=== PATIENT | female | born 1965 | race Caucasian/White ===

== ENCOUNTER 2022-08-26 19:25 | Inpatient (IN) | payer MEDICAID ==
[~2022-08-26] VITALS: Ht 154.9 cm; Wt 82.6 kg
[2022-08-26] MEDS ORDERED: IPRATROPIUM BROMIDE (0.02%) 0.5MG/2.5ML NEB HHN STA (20:42)
[2022-08-26] MEDS ORDERED: METHYLPREDNISOLONE SOD SUCC 125 MG/2 ML VIAL IV STA (20:42)
[2022-08-26] MEDS ORDERED: FUROSEMIDE 40MG/4ML VIAL IV ONE (20:45)
[2022-08-26 21:13] LABS: BASOPHILS % 0.5 % (0.0-2.0); EOSINOPHILS % 0.3 % (0.0-5.0); HEMATOCRIT. 46.6 % (36.0-48.0); HEMOGLOBIN. 15.1 g/dL (12.0-16.0); LYMPHOCYTES % 17.9 % (20.0-50.0); MEAN CORPUSCULAR HEMOGLOBIN 29.2 pg (28.0-32.0); MEAN CORPUSCULAR VOLUME 90.4 fL (81.0-99.0); MEAN PLATELET VOLUME 8.7 fl (7.4-10.4); NEUTROPHILS % 74.3 % (40.0-76.0); PLATELET 254 x1000/uL (130-400); RED BLOOD CELL COUNT 5.15 mill/uL (4.2-5.4); RED CELL DISTRIBUTION WIDTH 18.3 % (11.6-14.6)
[2022-08-26] MEDS ORDERED: SODIUM CHLORIDE 0.9% 1,000 ML IV ONE (21:45)
[2022-08-26] MEDS: ALBUTEROL (0.083%) 2.5MG/3ML NEB HHN SCH ×2 (21:47→23:48)
[2022-08-26 22:14] LABS: CHLORIDE 100 mEq/L (98-107)
[2022-08-26 22:15] LABS: CLARITY URINE CLEAR (CLEAR); COLOR URINE YELLOW (YELLOW); KETONES URINE NEGATIVE (NEGATIVE); LEUKOCYTE ESTERASE URINE NEGATIVE (NEGATIVE); NITRITE URINE NEGATIVE (NEGATIVE); OCCULT BLOOD URINE NEGATIVE (NEGATIVE); PROTEIN URINE NEGATIVE (NEGATIVE); SPECIFIC GRAVITY URINE 1.007 (1.005-1.030); UROBILINOGEN URINE 0.2 E.U./dL (0.2-1.0)
[2022-08-26] MEDS ORDERED: DIPHENHYDRAMINE 50MG/ML VIAL IV PRN (22:30)
[2022-08-26] MEDS ORDERED: MAGNESIUM HYDROXIDE 400MG/5ML 30ML UDC PO PRN (22:30)
[2022-08-26] MEDS ORDERED: BENZONATATE 100MG CAPSULE PO PRN (22:30)
[2022-08-26] MEDS ORDERED: KETOROLAC 30MG/ML VIAL IV PRN (22:30)
[2022-08-26] MEDS ORDERED: ACETAMINOPHEN 325MG TABLET PO PRN ×2 (22:30)
[2022-08-26] MEDS ORDERED: MAGNESIUM/ALUMINUM HYDROXIDE/SIMETHICONE 30ML UDC PO PRN (22:30)
[2022-08-26] MEDS ORDERED: IPRATROPIUM/ALBUTEROL 0.5-3(2.5)MG/3ML NEB HHN PRN (22:30)
[2022-08-26] MEDS ORDERED: HYDRALAZINE 20MG/ML VIAL IV PRN (22:30)
[2022-08-26] MEDS ORDERED: IPRATROPIUM/ALBUTEROL 0.5-3(2.5)MG/3ML NEB HHN SCH (22:30)
[2022-08-26] MEDS ORDERED: ONDANSETRON HCL 4MG/2ML INJ IV PRN (22:30)
[2022-08-26] MEDS ORDERED: HYDROCODONE/ACETAMINOPHEN 5/325MG TABLET PO ONE (22:45)
[2022-08-26] MEDS ORDERED: NICOTINE 21MG PATCH TD ONE (22:45)
[2022-08-26] MEDS ORDERED: ALBUTEROL (0.083%) 2.5MG/3ML NEB HHN PRN (23:00)
[2022-08-26] MEDS ORDERED: IPRATROPIUM BROMIDE (0.02%) 0.5MG/2.5ML NEB HHN PRN (23:00)
[2022-08-26] MEDS: METHYLPREDNISOLONE SOD SUCC 40 MG/ML VIAL IV SCH (23:05)
[2022-08-26] MEDS: IPRATROPIUM BROMIDE (0.02%) 0.5MG/2.5ML NEB HHN SCH (23:47)
[2022-08-27 01:16] VITALS: BP 107/34
[2022-08-27] MEDS ORDERED: FURO-152 PO (03:27)
[2022-08-27] MEDS ORDERED: GABA600T PO (03:29)
[2022-08-27] MEDS ORDERED: TRAZ-252 PO (03:30)
[2022-08-27] MEDS ORDERED: HYDR-4009 PO (03:30)
[2022-08-27] MEDS: SODIUM CHLORIDE 0.9% INJ 3ML FLUSH IVF SCH ×3 (05:45→21:21)
[2022-08-27] MEDS: METHYLPREDNISOLONE SOD SUCC 40 MG/ML VIAL IV SCH ×3 (05:45→21:19)
[2022-08-27] MEDS: ALBUTEROL (0.083%) 2.5MG/3ML NEB HHN SCH ×4 (05:52→20:43)
[2022-08-27] MEDS: IPRATROPIUM BROMIDE (0.02%) 0.5MG/2.5ML NEB HHN SCH ×4 (05:52→20:43)
[2022-08-27] MEDS: HYDROCODONE/ACETAMINOPHEN 10/325MG TABLET PO PRN ×2 (06:31→20:12)
[2022-08-27 08:00] VITALS: BP 133/53
[2022-08-27] MEDS: GUAIFENESIN 600MG ER TABLET PO SCH ×2 (09:13→20:11)
[2022-08-27] MEDS: ASPIRIN 81MG EC TABLET PO SCH (09:13)
[2022-08-27] MEDS: LOSARTAN POTASSIUM 50 MG TABLET PO SCH (09:13)
[2022-08-27] MEDS: OMEPRAZOLE 20MG CAPSULE EXTENDED RELEASE PO SCH ×2 (09:13→20:11)
[2022-08-27] MEDS: AMLODIPINE 5MG TABLET PO SCH ×2 (09:17→20:11)
[2022-08-27] MEDS: ENOXAPARIN 40MG/0.4ML SYR SUBCUT SCH (09:21)
[2022-08-27] MEDS ORDERED: KETOROLAC 15MG/ML VIAL IV PRN (11:00)
[2022-08-27 11:55] VITALS: BP 132/56
[2022-08-27] MEDS ORDERED: BACL-141 PO (12:20)
[2022-08-27] MEDS ORDERED: LOSA50TA41 PO (12:21)
[2022-08-27] MEDS ORDERED: LORA-985 PO (12:21)
[2022-08-27] MEDS ORDERED: PANT40SU PO (12:22)
[2022-08-27] MEDS ORDERED: OLAN5TAB74 PO (12:22)
[2022-08-27] MEDS ORDERED: DULO30CA52 PO (12:23)
[2022-08-27] MEDS: GABAPENTIN 300MG CAPSULE PO SCH ×2 (13:16→21:19)
[2022-08-27] MEDS: LIDOCAINE 5% PATCH TOP SCH (13:17)
[2022-08-27 16:00] VITALS: BP 117/57
[2022-08-27] MEDS ORDERED: NALOXONE HCL 0.4MG/ML VIAL IV PRN (18:00)
[2022-08-27 20:00] VITALS: BP 123/63
[2022-08-27] MEDS: ZOLPIDEM TARTRATE 5MG TABLET PO PRN (21:19)
[2022-08-27] MEDS: BACLOFEN 10MG TABLET PO SCH (21:20)
[2022-08-27] MEDS ORDERED: LORA-250 PO (21:56)
[2022-08-28] VITALS: BP 106/65
[2022-08-28] MEDS: IPRATROPIUM BROMIDE (0.02%) 0.5MG/2.5ML NEB HHN SCH ×4 (01:02→17:55)
[2022-08-28] MEDS: ALBUTEROL (0.083%) 2.5MG/3ML NEB HHN SCH ×4 (01:02→20:40)
[2022-08-28 04:00] VITALS: BP 122/58
[2022-08-28] MEDS: GABAPENTIN 300MG CAPSULE PO SCH ×3 (05:32→21:15)
[2022-08-28] MEDS: METHYLPREDNISOLONE SOD SUCC 40 MG/ML VIAL IV SCH ×3 (05:32→21:14)
[2022-08-28] MEDS: SODIUM CHLORIDE 0.9% INJ 3ML FLUSH IVF SCH ×3 (05:32→21:16)
[2022-08-28] MEDS: KETOROLAC 15MG/ML VIAL IV PRN ×3 (06:38→18:08)
[2022-08-28] MEDS: OMEPRAZOLE 20MG CAPSULE EXTENDED RELEASE PO SCH (06:38)
[2022-08-28 08:07] VITALS: BP 122/72
[2022-08-28] MEDS: ENOXAPARIN 40MG/0.4ML SYR SUBCUT SCH (09:26)
[2022-08-28] MEDS: LOSARTAN POTASSIUM 50 MG TABLET PO SCH (09:27)
[2022-08-28] MEDS: LIDOCAINE 5% PATCH TOP SCH (09:27)
[2022-08-28] MEDS: ASPIRIN 81MG EC TABLET PO SCH (09:27)
[2022-08-28] MEDS: AMLODIPINE 5MG TABLET PO SCH ×2 (09:27→21:15)
[2022-08-28] MEDS: BACLOFEN 10MG TABLET PO SCH ×3 (09:27→18:08)
[2022-08-28] MEDS: HYDROCODONE/ACETAMINOPHEN 10/325MG TABLET PO PRN ×2 (09:27→21:15)
[2022-08-28] MEDS: GUAIFENESIN 600MG ER TABLET PO SCH ×2 (09:43→21:15)
[2022-08-28] MEDS: NICOTINE 21MG PATCH TD SCH (11:44)
[2022-08-28 12:00] VITALS: BP 120/64
[2022-08-28 15:35] VITALS: BP 128/54
[2022-08-28 20:00] VITALS: BP 129/58
[2022-08-28] MEDS: FAMOTIDINE 20MG TABLET PO SCH (21:15)
[2022-08-28] MEDS: ZOLPIDEM TARTRATE 5MG TABLET PO PRN (23:07)
[2022-08-29] VITALS: BP 116/48
[2022-08-29] MEDS: ALBUTEROL (0.083%) 2.5MG/3ML NEB HHN SCH ×4 (02:08→20:30)
[2022-08-29] MEDS: IPRATROPIUM BROMIDE (0.02%) 0.5MG/2.5ML NEB HHN SCH ×4 (02:08→20:31)
[2022-08-29 04:00] VITALS: BP 124/53
[2022-08-29] MEDS: KETOROLAC 15MG/ML VIAL IV PRN (04:25)
[2022-08-29] MEDS: GABAPENTIN 300MG CAPSULE PO SCH ×3 (05:46→21:01)
[2022-08-29] MEDS: FAMOTIDINE 20MG TABLET PO SCH ×2 (05:46→21:01)
[2022-08-29] MEDS: SODIUM CHLORIDE 0.9% INJ 3ML FLUSH IVF SCH ×3 (05:46→21:01)
[2022-08-29 07:57] VITALS: BP 139/55
[2022-08-29] MEDS: METHYLPREDNISOLONE SOD SUCC 40 MG/ML VIAL IV SCH ×2 (09:04→21:14)
[2022-08-29] MEDS: ASPIRIN 81MG EC TABLET PO SCH (09:05)
[2022-08-29] MEDS: GUAIFENESIN 600MG ER TABLET PO SCH ×2 (09:05→21:01)
[2022-08-29] MEDS: LOSARTAN POTASSIUM 50 MG TABLET PO SCH (09:05)
[2022-08-29] MEDS: BACLOFEN 10MG TABLET PO SCH ×3 (09:05→17:00)
[2022-08-29] MEDS: AMLODIPINE 5MG TABLET PO SCH ×2 (09:05→21:01)
[2022-08-29] MEDS: LIDOCAINE 5% PATCH TOP SCH (09:08)
[2022-08-29] MEDS: NICOTINE 21MG PATCH TD SCH (09:08)
[2022-08-29] MEDS: ENOXAPARIN 40MG/0.4ML SYR SUBCUT SCH (09:08)
[2022-08-29 12:41] VITALS: BP 136/49
[2022-08-29] MEDS: HYDROCODONE/ACETAMINOPHEN 10/325MG TABLET PO PRN (14:32)
[2022-08-29 16:00] VITALS: BP 123/48
[2022-08-29 20:00] VITALS: BP 120/53
[2022-08-30] VITALS: BP 141/80
[2022-08-30] MEDS: ZOLPIDEM TARTRATE 5MG TABLET PO PRN (00:38)
[2022-08-30] MEDS: KETOROLAC 15MG/ML VIAL IV PRN ×2 (01:01→10:03)
[2022-08-30] MEDS: ALBUTEROL (0.083%) 2.5MG/3ML NEB HHN SCH ×3 (01:27→14:50)
[2022-08-30] MEDS: IPRATROPIUM BROMIDE (0.02%) 0.5MG/2.5ML NEB HHN SCH ×3 (01:28→14:50)
[2022-08-30 04:00] VITALS: BP 130/58
[2022-08-30] MEDS: GABAPENTIN 300MG CAPSULE PO SCH (06:25)
[2022-08-30] MEDS: FAMOTIDINE 20MG TABLET PO SCH (06:25)
[2022-08-30] MEDS: HYDROCODONE/ACETAMINOPHEN 10/325MG TABLET PO PRN (06:26)
[2022-08-30] MEDS: SODIUM CHLORIDE 0.9% INJ 3ML FLUSH IVF SCH (06:27)
[2022-08-30 08:00] VITALS: BP 140/77
[2022-08-30] MEDS: GUAIFENESIN 600MG ER TABLET PO SCH (09:30)
[2022-08-30] MEDS: LOSARTAN POTASSIUM 50 MG TABLET PO SCH (09:30)
[2022-08-30] MEDS: ASPIRIN 81MG EC TABLET PO SCH (09:30)
[2022-08-30] MEDS: AMLODIPINE 5MG TABLET PO SCH (09:30)
[2022-08-30] MEDS: BACLOFEN 10MG TABLET PO SCH (09:30)
[2022-08-30] MEDS: ENOXAPARIN 40MG/0.4ML SYR SUBCUT SCH (09:31)
[2022-08-30] MEDS: NICOTINE 21MG PATCH TD SCH (09:31)
[2022-08-30] MEDS: METHYLPREDNISOLONE SOD SUCC 40 MG/ML VIAL IV SCH (09:31)
[2022-08-30] MEDS: LIDOCAINE 5% PATCH TOP SCH (09:34)
[2022-08-30 12:00] VITALS: BP 107/68
[2022-08-30 12:23] LABS: BG CARBOXYHEMOGLOBIN 1.4 % (0.5-1.5); BG DEOXYHEMOGLOBIN 9.9 % (0.0-5.0); BG FRACTION INSPIRED OXYGEN 21; BG HCO3 ACT 29.4 mmol/L (22.0-26.0); BG METHEMOGLOBIN 0.2 % (0.0-1.5); BG OXYGEN SATURATION 89.9 % (92.0-98.5); BG OXYHEMOGLOBIN 88.5 % (94.0-97.0); BG PCO2 46.6 mmHg (35.0-45.0); BG PH 7.418 (7.350-7.450); BG PO2 56.4 mmHg (75.0-100.0); BG SAMPLE SITE RIGHT RADIAL; BG TOTAL HEMOGLOBIN 15.5 g/dL (12.0-18.0); BG VENT MODE ROOM AIR
[2022-08-30 13:47] VITALS: BP 101/78
== END 2022-08-30 15:04 | disposition home or self-care (01) | DRG 140 ==
LOC: ER 19:25 → EDBEDREQ 21:44 → EDBEDREQSVC 21:44 → 7WST 08-27 02:09 → 6EST 08-29 11:59
PROVIDERS: ADMIT Internal Medicine; ATTEND Internal Medicine
DX: J44.1 Chronic obstructive pulmonary disease with (acute) exacerbation (principal); J96.21 Acute and chronic respiratory failure with hypoxia; I50.33 Acute on chronic diastolic (congestive) heart failure; I11.0 Hypertensive heart disease with heart failure; E78.00 Pure hypercholesterolemia, unspecified; D72.829 Elevated white blood cell count, unspecified; Z20.822 Contact with and (suspected) exposure to COVID-19; E66.9 Obesity, unspecified; F32.A Depression, unspecified; F17.210 Nicotine dependence, cigarettes, uncomplicated; M54.30 Sciatica, unspecified side; Z87.01 Personal history of pneumonia (recurrent); Z59.00 Homelessness unspecified; Z99.81 Dependence on supplemental oxygen; Z68.34 Body mass index [BMI] 34.0-34.9, adult; Z95.5 Presence of coronary angioplasty implant and graft
CPT/HCPCS: 36415; 36600; 71045; 80053; 81003; 82375; 82805; 83605; 83880; 84145; 84484; 85025; 87426; 87804; 93005; 93306; 94640; 99285; C9803; J1650; J1885; J1940; J2920; J2930; J7030

== ENCOUNTER 2022-09-21 19:18 | Inpatient (IN) | payer MEDICAID ==
[~2022-09-21] VITALS: Ht 167.6 cm; Wt 89.8 kg
[~2022-09-21 19:18] MED LIST: BACL-141 PO; DULO30CA52 PO; FURO-152 PO; GABA600T PO; HYDR-4009 PO; LORA-250 PO; LORA-985 PO; LOSA50TA41 PO; OLAN5TAB74 PO; PANT40SU PO; TRAZ-252 PO
[2022-09-21] MEDS ORDERED: IPRATROPIUM BROMIDE (0.02%) 0.5MG/2.5ML NEB HHN STA (19:45)
[2022-09-21] MEDS ORDERED: ALBUTEROL (0.083%) 2.5MG/3ML NEB HHN STA (19:45)
[2022-09-21] MEDS ORDERED: METHYLPREDNISOLONE SOD SUCC 125 MG/2 ML VIAL IV STA (19:45)
[2022-09-21] MEDS ORDERED: IPRATROPIUM BROMIDE (0.02%) 0.5MG/2.5ML NEB HHN SCH (21:45)
[2022-09-21] MEDS ORDERED: METHYLPREDNISOLONE SOD SUCC 125 MG/2 ML VIAL IV SCH (21:45)
[2022-09-21] MEDS ORDERED: ALBUTEROL (0.083%) 2.5MG/3ML NEB HHN SCH (21:45)
[2022-09-21 22:49] LABS: BASOPHILS % 1.2 % (0.0-2.0); EOSINOPHILS % 1.2 % (0.0-5.0); HEMATOCRIT. 37.4 % (36.0-48.0); HEMOGLOBIN. 12.3 g/dL (12.0-16.0); LYMPHOCYTES % 23.5 % (20.0-50.0); MEAN CORPUSCULAR HEMOGLOBIN 28.8 pg (28.0-32.0); MEAN CORPUSCULAR VOLUME 87.4 fL (81.0-99.0); MONOCYTES % 8.6 % (2.0-8.0); NEUTROPHILS % 65.5 % (40.0-76.0); PLATELET 396 x1000/uL (130-400); RED BLOOD CELL COUNT 4.28 mill/uL (4.2-5.4); RED CELL DISTRIBUTION WIDTH 19.6 % (11.6-14.6)
[2022-09-21 22:50] LABS: CHLORIDE 102 mEq/L (98-107)
[2022-09-22] MEDS ORDERED: CLONIDINE 0.1MG TABLET PO PRN (01:30)
[2022-09-22] MEDS ORDERED: ACETAMINOPHEN 325MG TABLET PO PRN (01:30)
[2022-09-22] MEDS ORDERED: ONDANSETRON HCL 4MG/2ML INJ IV PRN (01:30)
[2022-09-22] MEDS ORDERED: IPRATROPIUM/ALBUTEROL 0.5-3(2.5)MG/3ML NEB HHN PRN (01:30)
[2022-09-22] MEDS ORDERED: GUAIFENESIN 200MG/10ML SUGAR FREE UDC PO PRN (01:30)
[2022-09-22 02:01] LABS: CLARITY URINE CLOUDY (CLEAR); COLOR URINE DARK YELLOW (YELLOW); KETONES URINE NEGATIVE (NEGATIVE); LEUKOCYTE ESTERASE URINE 1+ (NEGATIVE); NITRITE URINE POSITIVE (NEGATIVE); OCCULT BLOOD URINE NEGATIVE (NEGATIVE); PH URINE 5.5 (4.5-8.0); PROTEIN URINE TRACE (NEGATIVE); SPECIFIC GRAVITY URINE 1.027 (1.005-1.030)
[2022-09-22 02:04] LABS: *AMPHETAMINES SCREEN URINE NEGATIVE (NEGATIVE); *BARBITURATES SCREEN URINE NEGATIVE (NEGATIVE); *BENZODIAZEPINES SCREEN URINE NEGATIVE (NEGATIVE); *COCAINE SCREEN URINE NEGATIVE (NEGATIVE); CANNABINOID URINE SCREEN PRESUMTIVE POSITIVE (NEGATIVE); METHADONE URINE SCREEN NEGATIVE (NEGATIVE); OPIATES URINE SCREEN PRESUMTIVE POSITIVE (NEGATIVE); PHENCYCLIDINE URINE SCREEN NEGATIVE (NEGATIVE)
[2022-09-22 02:28] LABS: BG BASE EXCESS 6.6 mmol/L (-2.0-2.0); BG CARBOXYHEMOGLOBIN 2.8 % (0.5-1.5); BG DEOXYHEMOGLOBIN 1.7 % (0.0-5.0); BG FRACTION INSPIRED OXYGEN 100; BG HCO3 ACT 34.5 mmol/L (22.0-26.0); BG METHEMOGLOBIN 0.3 % (0.0-1.5); BG OXYGEN SATURATION 98.2 % (92.0-98.5); BG OXYHEMOGLOBIN 95.2 % (94.0-97.0); BG PH 7.336 (7.350-7.450); BG PO2 134.7 mmHg (75.0-100.0); BG SAMPLE SITE RIGHT BRACHIAL; BG TOTAL HEMOGLOBIN 12.9 g/dL (12.0-18.0); BG VENT MODE MASK - BIPAP
[2022-09-22 02:49] LABS: T4 FREE 1.32 ng/dL (0.76-1.46)
[2022-09-22 03:06] LABS: VITAMIN B12 SERUM 428 pg/mL (211-911)
[2022-09-22 04:17] LABS: FOLIC ACID (FOLATE) SERUM > 20.00 ng/mL (>5.38)
[2022-09-22] MEDS: ACETAMINOPHEN 325MG TABLET PO PRN (04:30)
[2022-09-22 06:57] LABS: CREATINE KINASE MB FRACTION 4.1 ng/mL (0.5-3.6)
[2022-09-22] MEDS: NITROFURANTOIN MACROCRYSTAL 50MG CAPSULE PO SCH ×3 (08:00→18:24)
[2022-09-22] MEDS: GABAPENTIN 300MG CAPSULE PO SCH ×3 (08:00→22:05)
[2022-09-22] MEDS: LORATADINE 10MG TABLET PO SCH (09:00)
[2022-09-22] MEDS: ENOXAPARIN 40MG/0.4ML SYR SUBCUT SCH (09:54)
[2022-09-22] MEDS: BACLOFEN 10MG TABLET PO SCH ×3 (09:54→18:13)
[2022-09-22] MEDS: FUROSEMIDE 40MG/4ML VIAL IVP SCH (09:54)
[2022-09-22] MEDS: LOSARTAN POTASSIUM 50 MG TABLET PO SCH (09:54)
[2022-09-22] MEDS: DULOXETINE HCL 30MG DR CAPSULE PO SCH ×2 (09:54→18:13)
[2022-09-22] MEDS: ZOLPIDEM TARTRATE 5MG TABLET PO PRN (10:02)
[2022-09-22] MEDS: NICOTINE 14MG PATCH TD SCH (14:58)
[2022-09-22 15:43] LABS: BG CARBOXYHEMOGLOBIN 1.4 % (0.5-1.5); BG DEOXYHEMOGLOBIN 15.1 % (0.0-5.0); BG FRACTION INSPIRED OXYGEN 50; BG HCO3 ACT 37.5 mmol/L (22.0-26.0); BG METHEMOGLOBIN 0.1 % (0.0-1.5); BG OXYGEN SATURATION 84.7 % (92.0-98.5); BG OXYHEMOGLOBIN 83.4 % (94.0-97.0); BG PCO2 64.2 mmHg (35.0-45.0); BG PH 7.384 (7.350-7.450); BG PO2 51.1 mmHg (75.0-100.0); BG SAMPLE SITE RIGHT RADIAL; BG TOTAL HEMOGLOBIN 12.9 g/dL (12.0-18.0); BG VENT MODE MASK - BIPAP
[2022-09-22 15:56] LABS: CREATINE KINASE MB FRACTION 4.2 ng/mL (0.5-3.6)
[2022-09-22] MEDS: IPRATROPIUM BROMIDE (0.02%) 0.5MG/2.5ML NEB HHN SCH (16:54)
[2022-09-22] MEDS: PREDNISONE 20MG TABLET PO SCH (18:13)
[2022-09-22] MEDS: LORAZEPAM 1MG TABLET PO PRN (22:05)
[2022-09-22] MEDS: FAMOTIDINE 20MG TABLET PO SCH (22:05)
[2022-09-22 22:30] VITALS: BP 104/63
[2022-09-22] MEDS ORDERED: INFLUENZA VACCINE 05/PF 0.5 ML SYRINGE IM ONE (23:30)
[2022-09-23] VITALS (8 sets, daily range): BP systolic 110–135; BP diastolic 55–70
[2022-09-23] MEDS: IPRATROPIUM BROMIDE (0.02%) 0.5MG/2.5ML NEB HHN SCH ×5 (00:54→20:30)
[2022-09-23] MEDS: ALBUTEROL (0.083%) 2.5MG/3ML NEB HHN SCH ×5 (00:54→20:29)
[2022-09-23] MEDS: NITROFURANTOIN MACROCRYSTAL 50MG CAPSULE PO SCH ×5 (01:03→18:03)
[2022-09-23] MEDS: ACETAMINOPHEN 325MG TABLET PO PRN (01:03)
[2022-09-23] MEDS: GABAPENTIN 300MG CAPSULE PO SCH ×3 (06:19→20:51)
[2022-09-23] MEDS: DULOXETINE HCL 30MG DR CAPSULE PO SCH ×2 (10:09→18:01)
[2022-09-23] MEDS: PREDNISONE 20MG TABLET PO SCH ×2 (10:09→18:03)
[2022-09-23] MEDS: FUROSEMIDE 40MG/4ML VIAL IVP SCH (10:09)
[2022-09-23] MEDS: BACLOFEN 10MG TABLET PO SCH ×3 (10:09→18:01)
[2022-09-23] MEDS: LOSARTAN POTASSIUM 50 MG TABLET PO SCH (10:09)
[2022-09-23] MEDS: ENOXAPARIN 40MG/0.4ML SYR SUBCUT SCH (10:09)
[2022-09-23] MEDS: NICOTINE 14MG PATCH TD SCH (10:13)
[2022-09-23] MEDS: LIDOCAINE 5% PATCH TOP SCH (10:14)
[2022-09-23 10:58] LABS: BASOPHILS % 0.6 % (0.0-2.0); EOSINOPHILS % 0.1 % (0.0-5.0); HEMATOCRIT. 37.4 % (36.0-48.0); HEMOGLOBIN. 12.1 g/dL (12.0-16.0); LYMPHOCYTES % 20.5 % (20.0-50.0); MEAN CORPUSCULAR HEMOGLOBIN 28.5 pg (28.0-32.0); MEAN CORPUSCULAR VOLUME 88.5 fL (81.0-99.0); MEAN PLATELET VOLUME 8.2 fl (7.4-10.4); MONOCYTES % 8.9 % (2.0-8.0); NEUTROPHILS % 69.9 % (40.0-76.0); PLATELET 401 x1000/uL (130-400); RED BLOOD CELL COUNT 4.23 mill/uL (4.2-5.4); RED CELL DISTRIBUTION WIDTH 18.7 % (11.6-14.6)
[2022-09-23] MEDS: LORATADINE 10MG TABLET PO SCH (11:19)
[2022-09-23 11:39] LABS: CHLORIDE 101 mEq/L (98-107)
[2022-09-23 11:49] LABS: PHOSPHORUS 2.2 mg/dL (2.5-4.9)
[2022-09-23] MEDS: LORAZEPAM 1MG TABLET PO PRN ×2 (11:56→20:50)
[2022-09-23] MEDS: ENOXAPARIN 30MG/0.3ML SYR SUBCUT SCH (20:50)
[2022-09-23] MEDS: FAMOTIDINE 20MG TABLET PO SCH (20:50)
[2022-09-24] VITALS: BP 110/79
[2022-09-24] MEDS: NITROFURANTOIN MACROCRYSTAL 50MG CAPSULE PO SCH ×5 (00:15→23:55)
[2022-09-24 02:00] VITALS: BP 106/50
[2022-09-24] MEDS: ALBUTEROL (0.083%) 2.5MG/3ML NEB HHN SCH ×4 (02:08→20:14)
[2022-09-24] MEDS: IPRATROPIUM BROMIDE (0.02%) 0.5MG/2.5ML NEB HHN SCH ×4 (02:09→20:15)
[2022-09-24 04:00] VITALS: BP 120/59
[2022-09-24] MEDS: GABAPENTIN 300MG CAPSULE PO SCH ×3 (05:28→21:35)
[2022-09-24 06:00] VITALS: BP 114/68
[2022-09-24 08:00] VITALS: BP 114/54
[2022-09-24 09:33] LABS: BG BASE EXCESS 6.6 mmol/L (-2.0-2.0); BG CARBOXYHEMOGLOBIN 0.9 % (0.5-1.5); BG DEOXYHEMOGLOBIN 7.5 % (0.0-5.0); BG FRACTION INSPIRED OXYGEN 50; BG HCO3 ACT 34.2 mmol/L (22.0-26.0); BG METHEMOGLOBIN 0.3 % (0.0-1.5); BG OXYGEN SATURATION 92.4 % (92.0-98.5); BG OXYHEMOGLOBIN 91.3 % (94.0-97.0); BG PCO2 63.2 mmHg (35.0-45.0); BG PH 7.351 (7.350-7.450); BG PO2 68.8 mmHg (75.0-100.0); BG SAMPLE SITE RIGHT BRACHIAL; BG TOTAL HEMOGLOBIN 13.1 g/dL (12.0-18.0); BG VENT MODE MASK - VENTI
[2022-09-24] MEDS: ENOXAPARIN 30MG/0.3ML SYR SUBCUT SCH ×2 (09:37→21:35)
[2022-09-24] MEDS: DULOXETINE HCL 30MG DR CAPSULE PO SCH ×2 (09:37→17:14)
[2022-09-24] MEDS: LOSARTAN POTASSIUM 50 MG TABLET PO SCH (09:37)
[2022-09-24] MEDS: FUROSEMIDE 40MG/4ML VIAL IVP SCH (09:37)
[2022-09-24] MEDS: BACLOFEN 10MG TABLET PO SCH ×3 (09:38→17:14)
[2022-09-24] MEDS: LORATADINE 10MG TABLET PO SCH (09:38)
[2022-09-24] MEDS: PREDNISONE 20MG TABLET PO SCH ×2 (09:38→17:14)
[2022-09-24] MEDS: NICOTINE 14MG PATCH TD SCH (09:40)
[2022-09-24] MEDS: LIDOCAINE 5% PATCH TOP SCH (09:45)
[2022-09-24] MEDS: LORAZEPAM 1MG TABLET PO PRN (09:56)
[2022-09-24 10:00] VITALS: BP 118/55
[2022-09-24] MEDS: FAMOTIDINE 20MG TABLET PO SCH (21:35)
[2022-09-25] VITALS (9 sets, daily range): BP systolic 111–135; BP diastolic 61–80
[2022-09-25] MEDS: ALBUTEROL (0.083%) 2.5MG/3ML NEB HHN SCH ×4 (02:29→20:02)
[2022-09-25] MEDS: IPRATROPIUM BROMIDE (0.02%) 0.5MG/2.5ML NEB HHN SCH ×4 (02:29→20:02)
[2022-09-25] MEDS: NITROFURANTOIN MACROCRYSTAL 50MG CAPSULE PO SCH ×3 (05:48→17:05)
[2022-09-25] MEDS: GABAPENTIN 300MG CAPSULE PO SCH ×3 (05:48→21:58)
[2022-09-25] MEDS: NICOTINE 14MG PATCH TD SCH (09:00)
[2022-09-25] MEDS: LIDOCAINE 5% PATCH TOP SCH (09:00)
[2022-09-25] MEDS: FUROSEMIDE 40MG/4ML VIAL IVP SCH (09:50)
[2022-09-25] MEDS: LORATADINE 10MG TABLET PO SCH (09:51)
[2022-09-25] MEDS: PREDNISONE 20MG TABLET PO SCH ×2 (09:51→17:05)
[2022-09-25] MEDS: LOSARTAN POTASSIUM 50 MG TABLET PO SCH (09:51)
[2022-09-25] MEDS: DOCUSATE SODIUM 100MG CAPSULE PO PRN (09:51)
[2022-09-25] MEDS: BACLOFEN 10MG TABLET PO SCH ×3 (09:51→17:05)
[2022-09-25] MEDS: DULOXETINE HCL 30MG DR CAPSULE PO SCH ×2 (09:51→17:05)
[2022-09-25] MEDS: ENOXAPARIN 30MG/0.3ML SYR SUBCUT SCH ×2 (09:52→21:00)
[2022-09-25] MEDS: ZIPRASIDONE HCL 20MG CAPSULE PO SCH (17:01)
[2022-09-25] MEDS: PRAZOSIN HCL 1MG CAPSULE PO SCH (21:00)
[2022-09-25] MEDS: FAMOTIDINE 20MG TABLET PO SCH (21:56)
[2022-09-25] MEDS: ACETAMINOPHEN 325MG TABLET PO PRN (21:58)
[2022-09-25] MEDS: LORAZEPAM 1MG TABLET PO PRN (21:58)
[2022-09-26] MEDS: ALBUTEROL (0.083%) 2.5MG/3ML NEB HHN SCH ×4 (01:36→20:06)
[2022-09-26] MEDS: IPRATROPIUM BROMIDE (0.02%) 0.5MG/2.5ML NEB HHN SCH ×4 (01:36→20:07)
[2022-09-26] MEDS: GABAPENTIN 300MG CAPSULE PO SCH ×3 (06:38→21:59)
[2022-09-26] MEDS: ACETAMINOPHEN 325MG TABLET PO PRN (06:38)
[2022-09-26] MEDS: NITROFURANTOIN MACROCRYSTAL 50MG CAPSULE PO SCH ×4 (06:38→18:07)
[2022-09-26 08:00] VITALS: BP 136/69
[2022-09-26] MEDS: ENOXAPARIN 30MG/0.3ML SYR SUBCUT SCH ×2 (09:00→21:59)
[2022-09-26] MEDS: BACLOFEN 10MG TABLET PO SCH ×3 (09:00→17:00)
[2022-09-26] MEDS: LORATADINE 10MG TABLET PO SCH (09:00)
[2022-09-26 09:26] LABS: BG CARBOXYHEMOGLOBIN 0.8 % (0.5-1.5); BG FRACTION INSPIRED OXYGEN 50; BG HCO3 ACT 29.8 mmol/L (22.0-26.0); BG METHEMOGLOBIN 0.3 % (0.0-1.5); BG OXYGEN SATURATION 94.9 % (92.0-98.5); BG OXYHEMOGLOBIN 93.9 % (94.0-97.0); BG PCO2 49.4 mmHg (35.0-45.0); BG PH 7.398 (7.350-7.450); BG PO2 78.3 mmHg (75.0-100.0); BG SAMPLE SITE RIGHT BRACHIAL; BG TOTAL HEMOGLOBIN 13.7 g/dL (12.0-18.0); BG VENT MODE MASK - VENTI
[2022-09-26 10:00] VITALS: BP 130/69
[2022-09-26] MEDS: DULOXETINE HCL 30MG DR CAPSULE PO SCH ×2 (10:02→17:00)
[2022-09-26] MEDS: FUROSEMIDE 40MG/4ML VIAL IVP SCH (10:02)
[2022-09-26] MEDS: ZIPRASIDONE HCL 20MG CAPSULE PO SCH ×2 (10:02→18:07)
[2022-09-26] MEDS: LOSARTAN POTASSIUM 50 MG TABLET PO SCH (10:03)
[2022-09-26] MEDS: PREDNISONE 20MG TABLET PO SCH ×2 (10:03→18:06)
[2022-09-26] MEDS: NICOTINE 14MG PATCH TD SCH (10:27)
[2022-09-26] MEDS: LIDOCAINE 5% PATCH TOP SCH (10:28)
[2022-09-26 12:00] VITALS: BP 135/60
[2022-09-26] MEDS ORDERED: IPRATROPIUM BROMIDE (0.02%) 0.5MG/2.5ML NEB HHN PRN (17:30)
[2022-09-26 20:00] VITALS: BP 117/68
[2022-09-26] MEDS: FAMOTIDINE 20MG TABLET PO SCH (21:58)
[2022-09-27] VITALS: BP 126/66
[2022-09-27] MEDS: ALBUTEROL (0.083%) 2.5MG/3ML NEB HHN SCH ×4 (00:26→21:21)
[2022-09-27] MEDS: IPRATROPIUM BROMIDE (0.02%) 0.5MG/2.5ML NEB HHN SCH ×3 (00:27→13:59)
[2022-09-27] MEDS: ZOLPIDEM TARTRATE 5MG TABLET PO PRN (00:37)
[2022-09-27] MEDS: PRAZOSIN HCL 1MG CAPSULE PO SCH ×2 (00:38→21:06)
[2022-09-27] MEDS: NITROFURANTOIN MACROCRYSTAL 50MG CAPSULE PO SCH ×2 (00:43→07:05)
[2022-09-27] MEDS: GABAPENTIN 300MG CAPSULE PO SCH ×3 (07:05→21:05)
[2022-09-27] MEDS: ZIPRASIDONE HCL 20MG CAPSULE PO SCH ×2 (07:54→17:07)
[2022-09-27 08:00] VITALS: BP 134/62
[2022-09-27] MEDS: LOSARTAN POTASSIUM 50 MG TABLET PO SCH (08:08)
[2022-09-27] MEDS: ENOXAPARIN 30MG/0.3ML SYR SUBCUT SCH ×2 (08:08→21:07)
[2022-09-27] MEDS: LORATADINE 10MG TABLET PO SCH (08:08)
[2022-09-27] MEDS: PREDNISONE 20MG TABLET PO SCH (08:08)
[2022-09-27] MEDS: DULOXETINE HCL 30MG DR CAPSULE PO SCH ×2 (08:08→17:07)
[2022-09-27] MEDS: BACLOFEN 10MG TABLET PO SCH ×3 (08:08→17:07)
[2022-09-27] MEDS: DOCUSATE SODIUM 100MG CAPSULE PO PRN (08:08)
[2022-09-27] MEDS: FUROSEMIDE 40MG/4ML VIAL IVP SCH (08:08)
[2022-09-27] MEDS: NICOTINE 14MG PATCH TD SCH (08:09)
[2022-09-27] MEDS: LIDOCAINE 5% PATCH TOP SCH (08:09)
[2022-09-27 12:00] VITALS: BP 154/65
[2022-09-27 16:00] VITALS: BP 142/69
[2022-09-27 20:00] VITALS: BP 130/66
[2022-09-27] MEDS: FAMOTIDINE 20MG TABLET PO SCH (21:07)
[2022-09-27] MEDS: ACETAMINOPHEN 325MG TABLET PO PRN (21:14)
[2022-09-27] MEDS: BUDESONIDE 0.5MG/2ML NEB HHN SCH (21:21)
[2022-09-28] VITALS: BP 116/63
[2022-09-28 04:03] VITALS: BP 101/44
[2022-09-28] MEDS: GABAPENTIN 300MG CAPSULE PO SCH ×3 (05:00→21:05)
[2022-09-28 08:00] VITALS: BP 105/53
[2022-09-28] MEDS: ZIPRASIDONE HCL 20MG CAPSULE PO SCH ×3 (08:00→16:59)
[2022-09-28] MEDS: BUDESONIDE 0.5MG/2ML NEB HHN SCH ×2 (08:02→21:00)
[2022-09-28] MEDS: ALBUTEROL (0.083%) 2.5MG/3ML NEB HHN PRN ×2 (08:02→14:59)
[2022-09-28] MEDS: BACLOFEN 10MG TABLET PO SCH ×3 (09:00→16:58)
[2022-09-28] MEDS: DULOXETINE HCL 30MG DR CAPSULE PO SCH ×2 (09:00→16:58)
[2022-09-28] MEDS: PREDNISONE 20MG TABLET PO SCH (09:00)
[2022-09-28] MEDS: FUROSEMIDE 40MG/4ML VIAL IVP SCH (09:00)
[2022-09-28] MEDS: LORATADINE 10MG TABLET PO SCH (09:00)
[2022-09-28] MEDS: LOSARTAN POTASSIUM 50 MG TABLET PO SCH (09:00)
[2022-09-28] MEDS: ENOXAPARIN 30MG/0.3ML SYR SUBCUT SCH ×2 (09:01→21:09)
[2022-09-28] MEDS: NICOTINE 14MG PATCH TD SCH (09:01)
[2022-09-28] MEDS: LIDOCAINE 5% PATCH TOP SCH (09:02)
[2022-09-28 12:26] VITALS: BP 149/72
[2022-09-28 16:00] VITALS: BP 116/79
[2022-09-28 20:00] VITALS: BP 138/69
[2022-09-28] MEDS: FAMOTIDINE 20MG TABLET PO SCH (21:05)
[2022-09-28] MEDS: PRAZOSIN HCL 1MG CAPSULE PO SCH (22:44)
[2022-09-29] VITALS: BP 132/74
[2022-09-29 00:04] VITALS: BP 120/61
[2022-09-29] MEDS: ACETAMINOPHEN 325MG TABLET PO PRN (02:33)
[2022-09-29] MEDS: GABAPENTIN 300MG CAPSULE PO SCH (06:15)
[2022-09-29] MEDS: ZIPRASIDONE HCL 20MG CAPSULE PO SCH ×3 (07:20→17:20)
[2022-09-29] MEDS: DULOXETINE HCL 30MG DR CAPSULE PO SCH ×2 (09:00→17:18)
[2022-09-29] MEDS: LIDOCAINE 5% PATCH TOP SCH (09:00)
[2022-09-29] MEDS: BUDESONIDE 0.5MG/2ML NEB HHN SCH ×2 (09:04→20:21)
[2022-09-29 09:55] VITALS: BP 101/40
[2022-09-29] MEDS: FUROSEMIDE 40MG/4ML VIAL IVP SCH (10:02)
[2022-09-29] MEDS: LORATADINE 10MG TABLET PO SCH (10:03)
[2022-09-29] MEDS: NICOTINE 14MG PATCH TD SCH (10:03)
[2022-09-29] MEDS: ENOXAPARIN 30MG/0.3ML SYR SUBCUT SCH ×2 (10:03→21:14)
[2022-09-29] MEDS: LOSARTAN POTASSIUM 50 MG TABLET PO SCH (10:03)
[2022-09-29] MEDS: PREDNISONE 20MG TABLET PO SCH (10:03)
[2022-09-29] MEDS: BACLOFEN 10MG TABLET PO SCH ×3 (10:21→17:18)
[2022-09-29] MEDS ORDERED: IPRA42SP BOTHNSTRLS (11:05)
[2022-09-29] MEDS ORDERED: ALBU6.7H3 INH (11:05)
[2022-09-29] MEDS ORDERED: P20 PO (11:05)
[2022-09-29 12:22] VITALS: BP 118/44
[2022-09-29] MEDS ORDERED: FLUT1DIS3 INH (13:36)
[2022-09-29] MEDS: CYANOCOBALAMIN 1000MCG/ML VIAL IM SCH (14:27)
[2022-09-29 16:09] VITALS: BP 99/36
[2022-09-29 19:45] VITALS: BP 107/51
[2022-09-29] MEDS: IPRATROPIUM/ALBUTEROL 0.5-3(2.5)MG/3ML NEB HHN SCH (20:21)
[2022-09-29] MEDS: FAMOTIDINE 20MG TABLET PO SCH (21:14)
[2022-09-29] MEDS: PRAZOSIN HCL 1MG CAPSULE PO SCH (21:16)
[2022-09-30] VITALS: BP 107/66
[2022-09-30] MEDS: IPRATROPIUM/ALBUTEROL 0.5-3(2.5)MG/3ML NEB HHN SCH ×4 (00:31→14:16)
[2022-09-30 04:00] VITALS: BP 131/67
[2022-09-30] MEDS: ACETAMINOPHEN 325MG TABLET PO PRN ×3 (05:21→21:40)
[2022-09-30 07:02] LABS: BASOPHILS % 0.7 % (0.0-2.0); EOSINOPHILS % 2.1 % (0.0-5.0); HEMATOCRIT. 42.7 % (36.0-48.0); HEMOGLOBIN. 13.9 g/dL (12.0-16.0); LYMPHOCYTES % 37.2 % (20.0-50.0); MEAN CORPUSCULAR VOLUME 85.8 fL (81.0-99.0); MEAN PLATELET VOLUME 8.3 fl (7.4-10.4); MONOCYTES % 11.7 % (2.0-8.0); NEUTROPHILS % 48.3 % (40.0-76.0); PLATELET 411 x1000/uL (130-400); RED BLOOD CELL COUNT 4.98 mill/uL (4.2-5.4); RED CELL DISTRIBUTION WIDTH 18.4 % (11.6-14.6)
[2022-09-30 07:36] LABS: CHLORIDE 97 mEq/L (98-107)
[2022-09-30 08:00] VITALS: BP 145/85
[2022-09-30] MEDS: BUDESONIDE 0.5MG/2ML NEB HHN SCH (08:33)
[2022-09-30] MEDS: NICOTINE 14MG PATCH TD SCH (09:03)
[2022-09-30] MEDS: LOSARTAN POTASSIUM 50 MG TABLET PO SCH (09:04)
[2022-09-30] MEDS: ZIPRASIDONE HCL 20MG CAPSULE PO SCH (09:04)
[2022-09-30] MEDS: BACLOFEN 10MG TABLET PO SCH ×3 (09:04→17:35)
[2022-09-30] MEDS: PREDNISONE 20MG TABLET PO SCH (09:04)
[2022-09-30] MEDS: FUROSEMIDE 40MG/4ML VIAL IVP SCH (09:04)
[2022-09-30] MEDS: CYANOCOBALAMIN 1000MCG/ML VIAL IM SCH (09:04)
[2022-09-30] MEDS: LIDOCAINE 5% PATCH TOP SCH (09:06)
[2022-09-30] MEDS: LORATADINE 10MG TABLET PO SCH (09:07)
[2022-09-30] MEDS: ENOXAPARIN 30MG/0.3ML SYR SUBCUT SCH (09:25)
[2022-09-30] MEDS: DULOXETINE HCL 30MG DR CAPSULE PO SCH ×2 (09:26→17:00)
[2022-09-30] MEDS ORDERED: CYANOCOBALAMIN 1000MCG/ML VIAL IM SCH (13:45)
[2022-09-30 16:00] VITALS: BP 91/45
[2022-09-30] MEDS: ALBUTEROL (0.083%) 2.5MG/3ML NEB HHN PRN ×2 (20:35→20:36)
[2022-09-30 21:19] VITALS: BP 126/66
[2022-09-30] MEDS: GABAPENTIN 300MG CAPSULE PO SCH (21:37)
[2022-09-30] MEDS: FAMOTIDINE 20MG TABLET PO SCH (21:39)
[2022-09-30] MEDS: PRAZOSIN HCL 1MG CAPSULE PO SCH (21:39)
[2022-10-01 00:08] VITALS: BP 116/48
[2022-10-01] MEDS: IPRATROPIUM/ALBUTEROL 0.5-3(2.5)MG/3ML NEB HHN SCH (00:42)
[2022-10-01 04:10] VITALS: BP 102/63
[2022-10-01] MEDS: GABAPENTIN 300MG CAPSULE PO SCH ×3 (06:36→21:11)
[2022-10-01 07:58] VITALS: BP 132/67
[2022-10-01] MEDS: PREDNISONE 20MG TABLET PO SCH (08:10)
[2022-10-01] MEDS: ZIPRASIDONE HCL 20MG CAPSULE PO SCH ×3 (08:10→09:00)
[2022-10-01] MEDS: BACLOFEN 10MG TABLET PO SCH ×3 (08:10→16:30)
[2022-10-01] MEDS: LOSARTAN POTASSIUM 50 MG TABLET PO SCH (08:10)
[2022-10-01] MEDS: NICOTINE 14MG PATCH TD SCH (08:11)
[2022-10-01] MEDS: CYANOCOBALAMIN 1000MCG/ML VIAL IM SCH ×2 (08:11→08:56)
[2022-10-01] MEDS: DULOXETINE HCL 30MG DR CAPSULE PO SCH ×2 (08:13→16:29)
[2022-10-01] MEDS: ENOXAPARIN 40MG/0.4ML SYR SUBCUT SCH (08:55)
[2022-10-01] MEDS: LIDOCAINE 5% PATCH TOP SCH (09:00)
[2022-10-01] MEDS: LORATADINE 10MG TABLET PO SCH (09:01)
[2022-10-01] MEDS: FUROSEMIDE 40MG/4ML VIAL IVP SCH (09:01)
[2022-10-01 12:00] VITALS: BP 99/53
[2022-10-01] MEDS: ALBUTEROL (0.083%) 2.5MG/3ML NEB HHN SCH ×2 (14:01→19:57)
[2022-10-01] MEDS: IPRATROPIUM BROMIDE (0.02%) 0.5MG/2.5ML NEB HHN SCH ×2 (14:01→19:57)
[2022-10-01 16:00] VITALS: BP 116/51
[2022-10-01 20:00] VITALS: BP 128/65
[2022-10-01] MEDS: FAMOTIDINE 20MG TABLET PO SCH (21:11)
[2022-10-01] MEDS: PRAZOSIN HCL 1MG CAPSULE PO SCH (21:12)
[2022-10-02] VITALS: BP 109/55
[2022-10-02 04:00] VITALS: BP 118/71
[2022-10-02] MEDS: GABAPENTIN 300MG CAPSULE PO SCH ×3 (05:55→21:44)
[2022-10-02] MEDS: ALBUTEROL (0.083%) 2.5MG/3ML NEB HHN SCH ×3 (07:57→20:19)
[2022-10-02] MEDS: IPRATROPIUM BROMIDE (0.02%) 0.5MG/2.5ML NEB HHN SCH ×3 (07:57→20:19)
[2022-10-02 08:00] VITALS: BP 97/37
[2022-10-02] MEDS: FUROSEMIDE 40MG/4ML VIAL IVP SCH (08:26)
[2022-10-02] MEDS: PREDNISONE 20MG TABLET PO SCH (08:26)
[2022-10-02] MEDS: CYANOCOBALAMIN 1000MCG/ML VIAL IM SCH (08:26)
[2022-10-02] MEDS: LORATADINE 10MG TABLET PO SCH (08:26)
[2022-10-02] MEDS: BACLOFEN 10MG TABLET PO SCH ×3 (08:26→16:12)
[2022-10-02] MEDS: ENOXAPARIN 40MG/0.4ML SYR SUBCUT SCH (08:26)
[2022-10-02] MEDS: ZIPRASIDONE HCL 20MG CAPSULE PO SCH (08:27)
[2022-10-02] MEDS: LIDOCAINE 5% PATCH TOP SCH (08:27)
[2022-10-02] MEDS: DULOXETINE HCL 30MG DR CAPSULE PO SCH ×2 (08:27→16:01)
[2022-10-02] MEDS: LOSARTAN POTASSIUM 50 MG TABLET PO SCH (08:27)
[2022-10-02] MEDS: NICOTINE 14MG PATCH TD SCH (08:27)
[2022-10-02 12:00] VITALS: BP 108/57
[2022-10-02 16:00] VITALS: BP 133/66
[2022-10-02 20:00] VITALS: BP 121/55
[2022-10-02] MEDS: FAMOTIDINE 20MG TABLET PO SCH (21:44)
[2022-10-02] MEDS: PRAZOSIN HCL 1MG CAPSULE PO SCH (21:44)
[2022-10-02] MEDS: ACETAMINOPHEN 325MG TABLET PO PRN (21:45)
[2022-10-02] MEDS ORDERED: NITROGLYCERIN 0.4MG TABLET SL SL PRN (22:00)
[2022-10-03] VITALS: BP 119/61
[2022-10-03] MEDS: IPRATROPIUM BROMIDE (0.02%) 0.5MG/2.5ML NEB HHN SCH ×4 (01:00→21:02)
[2022-10-03] MEDS: ALBUTEROL (0.083%) 2.5MG/3ML NEB HHN SCH ×4 (01:00→21:02)
[2022-10-03 04:00] VITALS: BP 99/51
[2022-10-03] MEDS: GABAPENTIN 300MG CAPSULE PO SCH ×3 (06:08→22:08)
[2022-10-03 08:00] VITALS: BP 123/58
[2022-10-03] MEDS: LOSARTAN POTASSIUM 50 MG TABLET PO SCH (08:30)
[2022-10-03] MEDS: PREDNISONE 20MG TABLET PO SCH (08:31)
[2022-10-03] MEDS: FUROSEMIDE 40MG/4ML VIAL IVP SCH (08:31)
[2022-10-03] MEDS: LORATADINE 10MG TABLET PO SCH (08:31)
[2022-10-03] MEDS: BACLOFEN 10MG TABLET PO SCH ×2 (08:31→13:19)
[2022-10-03] MEDS: NICOTINE 14MG PATCH TD SCH (08:32)
[2022-10-03] MEDS: ENOXAPARIN 40MG/0.4ML SYR SUBCUT SCH (08:55)
[2022-10-03] MEDS: LIDOCAINE 5% PATCH TOP SCH (09:00)
[2022-10-03] MEDS: ZIPRASIDONE HCL 20MG CAPSULE PO SCH (09:00)
[2022-10-03] MEDS: CYANOCOBALAMIN 1000MCG/ML VIAL IM SCH (09:00)
[2022-10-03] MEDS: DULOXETINE HCL 30MG DR CAPSULE PO SCH ×2 (09:00→17:00)
[2022-10-03 12:00] VITALS: BP 122/83
[2022-10-03] MEDS: ACETAMINOPHEN 325MG TABLET PO PRN (13:20)
[2022-10-03 16:00] VITALS: BP 129/67
[2022-10-03 20:00] VITALS: BP 120/66
[2022-10-03] MEDS: FAMOTIDINE 20MG TABLET PO SCH (22:09)
[2022-10-03] MEDS: PRAZOSIN HCL 1MG CAPSULE PO SCH (22:14)
[2022-10-04] VITALS: BP 129/80
[2022-10-04] MEDS: IPRATROPIUM BROMIDE (0.02%) 0.5MG/2.5ML NEB HHN SCH ×4 (02:57→21:19)
[2022-10-04] MEDS: ALBUTEROL (0.083%) 2.5MG/3ML NEB HHN SCH ×4 (02:57→21:19)
[2022-10-04 04:00] VITALS: BP 101/66
[2022-10-04] MEDS: GABAPENTIN 300MG CAPSULE PO SCH ×3 (06:03→21:45)
[2022-10-04 08:00] VITALS: BP 125/62
[2022-10-04] MEDS: BACLOFEN 10MG TABLET PO SCH ×3 (08:46→17:00)
[2022-10-04] MEDS: ENOXAPARIN 40MG/0.4ML SYR SUBCUT SCH (08:47)
[2022-10-04] MEDS: LOSARTAN POTASSIUM 50 MG TABLET PO SCH (08:47)
[2022-10-04] MEDS: FUROSEMIDE 40MG/4ML VIAL IVP SCH (08:47)
[2022-10-04] MEDS: LORATADINE 10MG TABLET PO SCH (08:47)
[2022-10-04] MEDS: PREDNISONE 20MG TABLET PO SCH (08:47)
[2022-10-04] MEDS: NICOTINE 14MG PATCH TD SCH (08:48)
[2022-10-04] MEDS: ZIPRASIDONE HCL 20MG CAPSULE PO SCH ×2 (08:58→17:00)
[2022-10-04] MEDS: LIDOCAINE 5% PATCH TOP SCH (08:58)
[2022-10-04] MEDS: DULOXETINE HCL 30MG DR CAPSULE PO SCH ×2 (08:59→17:00)
[2022-10-04] MEDS: ACETAMINOPHEN 325MG TABLET PO PRN (10:25)
[2022-10-04 12:00] VITALS: BP 113/57
[2022-10-04 16:00] VITALS: BP 127/66
[2022-10-04 20:00] VITALS: BP 136/61
[2022-10-04] MEDS: TRAZODONE HCL 50MG TABLET PO SCH (21:45)
[2022-10-04] MEDS: FAMOTIDINE 20MG TABLET PO SCH (21:45)
[2022-10-04] MEDS: PRAZOSIN HCL 1MG CAPSULE PO SCH (21:45)
[2022-10-05] MEDS: ALBUTEROL (0.083%) 2.5MG/3ML NEB HHN SCH ×4 (02:01→21:31)
[2022-10-05] MEDS: IPRATROPIUM BROMIDE (0.02%) 0.5MG/2.5ML NEB HHN SCH ×4 (02:01→21:31)
[2022-10-05 08:00] VITALS: BP 130/65
[2022-10-05] MEDS: LIDOCAINE 5% PATCH TOP SCH (09:00)
[2022-10-05] MEDS: DULOXETINE HCL 30MG DR CAPSULE PO SCH ×2 (09:00→17:00)
[2022-10-05] MEDS: FUROSEMIDE 40MG/4ML VIAL IVP SCH (09:00)
[2022-10-05] MEDS: ZIPRASIDONE HCL 20MG CAPSULE PO SCH ×2 (09:00→17:00)
[2022-10-05] MEDS: NICOTINE 14MG PATCH TD SCH (09:31)
[2022-10-05] MEDS: ENOXAPARIN 40MG/0.4ML SYR SUBCUT SCH (09:33)
[2022-10-05] MEDS: LORATADINE 10MG TABLET PO SCH (09:34)
[2022-10-05] MEDS: BACLOFEN 10MG TABLET PO SCH ×3 (09:34→16:13)
[2022-10-05] MEDS: PREDNISONE 20MG TABLET PO SCH (09:34)
[2022-10-05] MEDS: LOSARTAN POTASSIUM 50 MG TABLET PO SCH (09:37)
[2022-10-05] MEDS: FUROSEMIDE 40MG TABLET PO SCH (11:07)
[2022-10-05 12:00] VITALS: BP 130/57
[2022-10-05] MEDS: GABAPENTIN 300MG CAPSULE PO SCH ×2 (13:11→21:13)
[2022-10-05 16:00] VITALS: BP 128/54
[2022-10-05 20:00] VITALS: BP 137/75
[2022-10-05] MEDS: PRAZOSIN HCL 1MG CAPSULE PO SCH (21:14)
[2022-10-05] MEDS: FAMOTIDINE 20MG TABLET PO SCH (21:14)
[2022-10-05] MEDS: TRAZODONE HCL 50MG TABLET PO SCH (21:14)
[2022-10-06] VITALS: BP 133/73
[2022-10-06] MEDS: ALBUTEROL (0.083%) 2.5MG/3ML NEB HHN SCH ×3 (01:38→13:19)
[2022-10-06] MEDS: IPRATROPIUM BROMIDE (0.02%) 0.5MG/2.5ML NEB HHN SCH ×3 (01:39→13:18)
[2022-10-06 04:00] VITALS: BP 106/61
[2022-10-06] MEDS: GABAPENTIN 300MG CAPSULE PO SCH ×3 (05:52→21:16)
[2022-10-06 07:46] VITALS: BP 100/64
[2022-10-06] MEDS: BACLOFEN 10MG TABLET PO SCH ×3 (08:54→17:26)
[2022-10-06] MEDS: NICOTINE 14MG PATCH TD SCH (08:54)
[2022-10-06] MEDS: LIDOCAINE 5% PATCH TOP SCH ×2 (08:54→08:59)
[2022-10-06] MEDS: ENOXAPARIN 40MG/0.4ML SYR SUBCUT SCH (08:54)
[2022-10-06] MEDS: LOSARTAN POTASSIUM 50 MG TABLET PO SCH (08:54)
[2022-10-06] MEDS: ZIPRASIDONE HCL 20MG CAPSULE PO SCH ×2 (08:55→17:00)
[2022-10-06] MEDS: DULOXETINE HCL 30MG DR CAPSULE PO SCH ×2 (08:55→17:00)
[2022-10-06] MEDS: PREDNISONE 20MG TABLET PO SCH (08:55)
[2022-10-06] MEDS: LORATADINE 10MG TABLET PO SCH (08:55)
[2022-10-06] MEDS: FUROSEMIDE 40MG TABLET PO SCH (08:55)
[2022-10-06 11:55] VITALS: BP 140/62
[2022-10-06 15:49] VITALS: BP 98/65
[2022-10-06 18:35] LABS: BG CARBOXYHEMOGLOBIN 0.8 % (0.5-1.5); BG DEOXYHEMOGLOBIN 10.2 % (0.0-5.0); BG FRACTION INSPIRED OXYGEN 21; BG HCO3 ACT 25.1 mmol/L (22.0-26.0); BG METHEMOGLOBIN 0.2 % (0.0-1.5); BG OXYGEN SATURATION 89.7 % (92.0-98.5); BG OXYHEMOGLOBIN 88.8 % (94.0-97.0); BG PCO2 42.6 mmHg (35.0-45.0); BG PH 7.388 (7.350-7.450); BG PO2 58.7 mmHg (75.0-100.0); BG SAMPLE SITE RIGHT BRACHIAL; BG VENT MODE ROOM AIR
[2022-10-06] MEDS: FAMOTIDINE 20MG TABLET PO SCH (20:41)
[2022-10-06] MEDS: TRAZODONE HCL 50MG TABLET PO SCH (20:41)
[2022-10-06] MEDS: PRAZOSIN HCL 1MG CAPSULE PO SCH (20:41)
[2022-10-07] VITALS: BP 103/51
[2022-10-07 04:00] VITALS: BP 121/72
[2022-10-07] MEDS: GABAPENTIN 300MG CAPSULE PO SCH ×3 (05:30→21:38)
[2022-10-07 08:00] VITALS: BP 115/57
[2022-10-07] MEDS: ZIPRASIDONE HCL 20MG CAPSULE PO SCH ×2 (09:00→17:00)
[2022-10-07] MEDS: DULOXETINE HCL 30MG DR CAPSULE PO SCH ×2 (09:00→17:00)
[2022-10-07] MEDS: LIDOCAINE 5% PATCH TOP SCH (09:00)
[2022-10-07 09:03] LABS: CHLORIDE 100 mEq/L (98-107)
[2022-10-07] MEDS: LOSARTAN POTASSIUM 50 MG TABLET PO SCH (09:16)
[2022-10-07] MEDS: LORATADINE 10MG TABLET PO SCH (09:16)
[2022-10-07] MEDS: FUROSEMIDE 40MG TABLET PO SCH (09:16)
[2022-10-07] MEDS: ENOXAPARIN 40MG/0.4ML SYR SUBCUT SCH (09:16)
[2022-10-07] MEDS: PREDNISONE 20MG TABLET PO SCH (09:17)
[2022-10-07] MEDS: BACLOFEN 10MG TABLET PO SCH ×3 (09:17→17:49)
[2022-10-07] MEDS: NICOTINE 14MG PATCH TD SCH (09:17)
[2022-10-07 10:38] LABS: HEMATOCRIT. 43.2 % (36.0-48.0); HEMOGLOBIN. 13.8 g/dL (12.0-16.0); MEAN CORPUSCULAR HEMOGLOBIN 28.1 pg (28.0-32.0); MEAN CORPUSCULAR VOLUME 87.7 fL (81.0-99.0); MEAN PLATELET VOLUME 8.3 fl (7.4-10.4); PLATELET 331 x1000/uL (130-400); RED BLOOD CELL COUNT 4.93 mill/uL (4.2-5.4); RED CELL DISTRIBUTION WIDTH 18.6 % (11.6-14.6)
[2022-10-07 11:30] LABS: PLATELET ESTIMATE NORMAL
[2022-10-07] MEDS ORDERED: HYDROCODONE/ACETAMINOPHEN 5/325MG TABLET PO PRN (11:30)
[2022-10-07] MEDS ORDERED: IPRATROPIUM BROMIDE (0.02%) 0.5MG/2.5ML NEB HHN PRN (11:45)
[2022-10-07] MEDS ORDERED: IPRATROPIUM/ALBUTEROL 0.5-3(2.5)MG/3ML NEB HHN PRN (11:45)
[2022-10-07] MEDS ORDERED: ALBUTEROL (0.083%) 2.5MG/3ML NEB HHN PRN (11:45)
[2022-10-07 12:00] VITALS: BP 126/49
[2022-10-07] MEDS ORDERED: IPRATROPIUM/ALBUTEROL 0.5-3(2.5)MG/3ML NEB HHN SCH (12:00)
[2022-10-07 16:00] VITALS: BP 111/68
[2022-10-07] MEDS: ALBUTEROL (0.083%) 2.5MG/3ML NEB HHN SCH (21:16)
[2022-10-07] MEDS: IPRATROPIUM BROMIDE (0.02%) 0.5MG/2.5ML NEB HHN SCH (21:17)
[2022-10-07] MEDS: TRAZODONE HCL 50MG TABLET PO SCH (21:37)
[2022-10-07] MEDS: FAMOTIDINE 20MG TABLET PO SCH (21:37)
[2022-10-07] MEDS: PRAZOSIN HCL 1MG CAPSULE PO SCH (21:38)
[2022-10-08] MEDS: ALBUTEROL (0.083%) 2.5MG/3ML NEB HHN SCH ×3 (01:46→14:15)
[2022-10-08] MEDS: IPRATROPIUM BROMIDE (0.02%) 0.5MG/2.5ML NEB HHN SCH ×3 (01:46→14:15)
[2022-10-08 04:00] VITALS: BP 119/61
[2022-10-08] MEDS: GABAPENTIN 300MG CAPSULE PO SCH ×3 (06:15→22:00)
[2022-10-08 08:00] VITALS: BP 119/55
[2022-10-08] MEDS: LIDOCAINE 5% PATCH TOP SCH (08:08)
[2022-10-08] MEDS: ZIPRASIDONE HCL 20MG CAPSULE PO SCH ×2 (08:08→16:48)
[2022-10-08] MEDS: DULOXETINE HCL 30MG DR CAPSULE PO SCH ×2 (08:08→16:48)
[2022-10-08] MEDS: NICOTINE 14MG PATCH TD SCH (08:12)
[2022-10-08] MEDS: FUROSEMIDE 40MG TABLET PO SCH (08:13)
[2022-10-08] MEDS: ENOXAPARIN 40MG/0.4ML SYR SUBCUT SCH (08:13)
[2022-10-08] MEDS: BACLOFEN 10MG TABLET PO SCH ×3 (08:13→16:44)
[2022-10-08] MEDS: LORATADINE 10MG TABLET PO SCH (08:13)
[2022-10-08] MEDS: PREDNISONE 20MG TABLET PO SCH (08:13)
[2022-10-08] MEDS: LOSARTAN POTASSIUM 50 MG TABLET PO SCH (08:14)
[2022-10-08] MEDS ORDERED: NALOXONE HCL 0.4MG/ML VIAL IV PRN (10:45)
[2022-10-08 12:00] VITALS: BP 117/50
[2022-10-08 16:00] VITALS: BP 118/52
[2022-10-08] MEDS: HYDROCODONE/ACETAMINOPHEN 5/325MG TABLET PO PRN (18:41)
[2022-10-08 20:00] VITALS: BP 126/73
[2022-10-08] MEDS ORDERED: IPRATROPIUM/ALBUTEROL 0.5-3(2.5)MG/3ML NEB HHN SCH (21:00)
[2022-10-08] MEDS: TRAZODONE HCL 50MG TABLET PO SCH (21:36)
[2022-10-08] MEDS: FAMOTIDINE 20MG TABLET PO SCH (21:36)
[2022-10-08] MEDS: PRAZOSIN HCL 1MG CAPSULE PO SCH (21:36)
[2022-10-09] VITALS: BP 118/66
[2022-10-09] MEDS: IPRATROPIUM BROMIDE (0.02%) 0.5MG/2.5ML NEB HHN SCH (01:41)
[2022-10-09] MEDS: ALBUTEROL (0.083%) 2.5MG/3ML NEB HHN SCH (01:42)
[2022-10-09 04:00] VITALS: BP 102/51
[2022-10-09] MEDS: GABAPENTIN 300MG CAPSULE PO SCH ×3 (05:54→22:00)
[2022-10-09] MEDS: HYDROCODONE/ACETAMINOPHEN 5/325MG TABLET PO PRN ×3 (06:55→22:30)
[2022-10-09 08:00] VITALS: BP 129/70
[2022-10-09] MEDS: DULOXETINE HCL 30MG DR CAPSULE PO SCH ×2 (08:20→17:00)
[2022-10-09] MEDS: FUROSEMIDE 40MG TABLET PO SCH (08:20)
[2022-10-09] MEDS: ZIPRASIDONE HCL 20MG CAPSULE PO SCH ×2 (08:20→17:00)
[2022-10-09] MEDS: DOCUSATE SODIUM 100MG CAPSULE PO PRN (08:21)
[2022-10-09] MEDS: PREDNISONE 20MG TABLET PO SCH (08:21)
[2022-10-09] MEDS: LORATADINE 10MG TABLET PO SCH (08:21)
[2022-10-09] MEDS: LOSARTAN POTASSIUM 50 MG TABLET PO SCH (08:21)
[2022-10-09] MEDS: BACLOFEN 10MG TABLET PO SCH ×3 (08:21→17:22)
[2022-10-09] MEDS: NICOTINE 14MG PATCH TD SCH (08:22)
[2022-10-09] MEDS: ENOXAPARIN 40MG/0.4ML SYR SUBCUT SCH (08:22)
[2022-10-09] MEDS: LIDOCAINE 5% PATCH TOP SCH (08:23)
[2022-10-09 12:00] VITALS: BP 144/98
[2022-10-09 16:00] VITALS: BP 117/54
[2022-10-09 20:00] VITALS: BP 118/70
[2022-10-09] MEDS: PRAZOSIN HCL 1MG CAPSULE PO SCH (21:00)
[2022-10-09] MEDS: FAMOTIDINE 20MG TABLET PO SCH (21:00)
[2022-10-09] MEDS: TRAZODONE HCL 50MG TABLET PO SCH (22:00)
[2022-10-10] VITALS: BP 120/80
[2022-10-10] MEDS: HYDROCODONE/ACETAMINOPHEN 5/325MG TABLET PO PRN ×4 (03:09→21:03)
[2022-10-10 04:00] VITALS: BP 125/66
[2022-10-10 08:00] VITALS: BP 90/60
[2022-10-10] MEDS: LOSARTAN POTASSIUM 50 MG TABLET PO SCH (09:00)
[2022-10-10] MEDS: DULOXETINE HCL 30MG DR CAPSULE PO SCH ×2 (09:00→17:00)
[2022-10-10] MEDS: ZIPRASIDONE HCL 20MG CAPSULE PO SCH ×2 (09:00→17:00)
[2022-10-10] MEDS: LIDOCAINE 5% PATCH TOP SCH (09:00)
[2022-10-10] MEDS: BACLOFEN 10MG TABLET PO SCH ×3 (09:57→17:48)
[2022-10-10] MEDS: LORATADINE 10MG TABLET PO SCH (09:57)
[2022-10-10] MEDS: PREDNISONE 20MG TABLET PO SCH (09:57)
[2022-10-10] MEDS: ENOXAPARIN 40MG/0.4ML SYR SUBCUT SCH (09:58)
[2022-10-10] MEDS: NICOTINE 14MG PATCH TD SCH (09:58)
[2022-10-10] MEDS: FUROSEMIDE 40MG TABLET PO SCH (10:01)
[2022-10-10 12:00] VITALS: BP 102/40
[2022-10-10 16:00] VITALS: BP 137/49
[2022-10-10 20:00] VITALS: BP 132/67
[2022-10-10] MEDS: TRAZODONE HCL 50MG TABLET PO SCH (20:56)
[2022-10-10] MEDS: GUAIFENESIN 600MG ER TABLET PO SCH (20:56)
[2022-10-10] MEDS: FAMOTIDINE 20MG TABLET PO SCH (20:56)
[2022-10-10] MEDS: PRAZOSIN HCL 1MG CAPSULE PO SCH (20:56)
[2022-10-10] MEDS: GABAPENTIN 300MG CAPSULE PO SCH (21:01)
[2022-10-11] VITALS: BP 121/40
[2022-10-11 04:00] VITALS: BP 111/42
[2022-10-11] MEDS: GABAPENTIN 300MG CAPSULE PO SCH ×3 (05:38→21:43)
[2022-10-11] MEDS: HYDROCODONE/ACETAMINOPHEN 5/325MG TABLET PO PRN ×3 (05:41→23:25)
[2022-10-11 08:00] VITALS: BP 121/57
[2022-10-11] MEDS: GUAIFENESIN 600MG ER TABLET PO SCH ×2 (08:49→21:43)
[2022-10-11] MEDS: PREDNISONE 20MG TABLET PO SCH (08:49)
[2022-10-11] MEDS: LOSARTAN POTASSIUM 50 MG TABLET PO SCH (08:49)
[2022-10-11] MEDS: LORATADINE 10MG TABLET PO SCH (08:49)
[2022-10-11] MEDS: FUROSEMIDE 40MG TABLET PO SCH (08:49)
[2022-10-11] MEDS: BACLOFEN 10MG TABLET PO SCH ×3 (08:49→17:31)
[2022-10-11] MEDS: NICOTINE 14MG PATCH TD SCH (08:50)
[2022-10-11] MEDS: LIDOCAINE 5% PATCH TOP SCH (08:50)
[2022-10-11] MEDS: ENOXAPARIN 40MG/0.4ML SYR SUBCUT SCH (08:50)
[2022-10-11] MEDS: ZIPRASIDONE HCL 20MG CAPSULE PO SCH ×3 (08:54→17:00)
[2022-10-11] MEDS: DULOXETINE HCL 30MG DR CAPSULE PO SCH ×3 (08:54→17:00)
[2022-10-11] MEDS ORDERED: ERGOCALCIFEROL 50000UNITS CAPSULE PO SCH (13:00)
[2022-10-11 16:00] VITALS: BP 103/54
[2022-10-11 20:00] VITALS: BP 128/60
[2022-10-11] MEDS: TRAZODONE HCL 50MG TABLET PO SCH (21:43)
[2022-10-11] MEDS: PRAZOSIN HCL 1MG CAPSULE PO SCH (21:44)
[2022-10-11] MEDS: FAMOTIDINE 20MG TABLET PO SCH (21:44)
[2022-10-12] VITALS: BP 132/80
[2022-10-12 04:00] VITALS: BP 129/60
[2022-10-12] MEDS: GABAPENTIN 300MG CAPSULE PO SCH ×3 (07:06→21:09)
[2022-10-12 08:00] VITALS: BP 109/58
[2022-10-12] MEDS: DULOXETINE HCL 30MG DR CAPSULE PO SCH ×2 (08:42→16:00)
[2022-10-12] MEDS: ZIPRASIDONE HCL 20MG CAPSULE PO SCH ×2 (08:42→16:00)
[2022-10-12] MEDS: PREDNISONE 20MG TABLET PO SCH (08:44)
[2022-10-12] MEDS: BACLOFEN 10MG TABLET PO SCH ×3 (08:44→16:01)
[2022-10-12] MEDS: LOSARTAN POTASSIUM 50 MG TABLET PO SCH (08:44)
[2022-10-12] MEDS: GUAIFENESIN 600MG ER TABLET PO SCH ×2 (08:45→20:32)
[2022-10-12] MEDS: LORATADINE 10MG TABLET PO SCH (08:45)
[2022-10-12] MEDS: FUROSEMIDE 40MG TABLET PO SCH (08:45)
[2022-10-12] MEDS: ENOXAPARIN 40MG/0.4ML SYR SUBCUT SCH (08:47)
[2022-10-12] MEDS: NICOTINE 14MG PATCH TD SCH (08:47)
[2022-10-12] MEDS: LIDOCAINE 5% PATCH TOP SCH (08:47)
[2022-10-12] MEDS: HYDROCODONE/ACETAMINOPHEN 5/325MG TABLET PO PRN ×2 (08:56→20:31)
[2022-10-12 12:00] VITALS: BP 120/58
[2022-10-12 16:00] VITALS: BP 126/60
[2022-10-12 20:00] VITALS: BP 124/45
[2022-10-12] MEDS: FAMOTIDINE 20MG TABLET PO SCH (20:30)
[2022-10-12] MEDS: TRAZODONE HCL 50MG TABLET PO SCH (20:31)
[2022-10-12] MEDS: PRAZOSIN HCL 1MG CAPSULE PO SCH (20:32)
[2022-10-13 04:00] VITALS: BP 109/48
[2022-10-13] MEDS: HYDROCODONE/ACETAMINOPHEN 5/325MG TABLET PO PRN ×2 (05:03→16:03)
[2022-10-13] MEDS: GABAPENTIN 300MG CAPSULE PO SCH ×3 (06:53→22:23)
[2022-10-13 08:00] VITALS: BP 132/52
[2022-10-13] MEDS: GUAIFENESIN 600MG ER TABLET PO SCH ×2 (08:45→22:24)
[2022-10-13] MEDS: LORATADINE 10MG TABLET PO SCH (08:45)
[2022-10-13] MEDS: PREDNISONE 20MG TABLET PO SCH (08:45)
[2022-10-13] MEDS: NICOTINE 14MG PATCH TD SCH (08:45)
[2022-10-13] MEDS: FUROSEMIDE 40MG TABLET PO SCH (08:45)
[2022-10-13] MEDS: LOSARTAN POTASSIUM 50 MG TABLET PO SCH (08:45)
[2022-10-13] MEDS: BACLOFEN 10MG TABLET PO SCH ×3 (08:45→18:27)
[2022-10-13] MEDS: ENOXAPARIN 40MG/0.4ML SYR SUBCUT SCH ×2 (08:46→09:00)
[2022-10-13] MEDS: DULOXETINE HCL 30MG DR CAPSULE PO SCH ×2 (08:59→17:00)
[2022-10-13] MEDS: ZIPRASIDONE HCL 20MG CAPSULE PO SCH ×2 (09:00→17:00)
[2022-10-13] MEDS: LIDOCAINE 5% PATCH TOP SCH (09:00)
[2022-10-13 12:00] VITALS: BP 107/51
[2022-10-13 16:00] VITALS: BP 111/36
[2022-10-13] MEDS: PRAZOSIN HCL 1MG CAPSULE PO SCH (21:00)
[2022-10-13] MEDS: TRAZODONE HCL 50MG TABLET PO SCH (22:24)
[2022-10-13] MEDS: FAMOTIDINE 20MG TABLET PO SCH (22:29)
[2022-10-14] VITALS: BP 108/75
[2022-10-14 04:00] VITALS: BP 137/63
[2022-10-14] MEDS: GABAPENTIN 300MG CAPSULE PO SCH ×3 (06:16→20:36)
[2022-10-14] MEDS: HYDROCODONE/ACETAMINOPHEN 5/325MG TABLET PO PRN (06:17)
[2022-10-14 08:00] VITALS: BP 158/66
[2022-10-14] MEDS: ZIPRASIDONE HCL 20MG CAPSULE PO SCH ×3 (09:00→16:31)
[2022-10-14] MEDS: FUROSEMIDE 40MG TABLET PO SCH (09:20)
[2022-10-14] MEDS: LOSARTAN POTASSIUM 50 MG TABLET PO SCH (09:20)
[2022-10-14] MEDS: DULOXETINE HCL 30MG DR CAPSULE PO SCH ×3 (09:20→16:33)
[2022-10-14] MEDS: LORATADINE 10MG TABLET PO SCH (09:20)
[2022-10-14] MEDS: PREDNISONE 20MG TABLET PO SCH (09:20)
[2022-10-14] MEDS: ENOXAPARIN 40MG/0.4ML SYR SUBCUT SCH (09:20)
[2022-10-14] MEDS: GUAIFENESIN 600MG ER TABLET PO SCH ×2 (09:20→20:36)
[2022-10-14] MEDS: BACLOFEN 10MG TABLET PO SCH ×3 (09:20→16:24)
[2022-10-14] MEDS: LIDOCAINE 5% PATCH TOP SCH (09:21)
[2022-10-14] MEDS: NICOTINE 14MG PATCH TD SCH (09:30)
[2022-10-14 12:00] VITALS: BP 119/70
[2022-10-14] MEDS: ACETAMINOPHEN 325MG TABLET PO PRN ×2 (15:09→20:56)
[2022-10-14 16:00] VITALS: BP 122/61
[2022-10-14 20:00] VITALS: BP 132/70
[2022-10-14] MEDS: TRAZODONE HCL 50MG TABLET PO SCH (20:36)
[2022-10-14] MEDS: FAMOTIDINE 20MG TABLET PO SCH (20:37)
[2022-10-14] MEDS: PRAZOSIN HCL 1MG CAPSULE PO SCH (20:37)
[2022-10-15] VITALS: BP 124/66
[2022-10-15] MEDS: GABAPENTIN 300MG CAPSULE PO SCH ×3 (05:12→20:28)
[2022-10-15 06:39] LABS: CHLORIDE 98 mEq/L (98-107)
[2022-10-15 07:21] LABS: BASOPHILS % 0.4 % (0.0-2.0); EOSINOPHILS % 1.2 % (0.0-5.0); HEMATOCRIT. 41.1 % (36.0-48.0); HEMOGLOBIN. 13.6 g/dL (12.0-16.0); LYMPHOCYTES % 26.3 % (20.0-50.0); MEAN CORPUSCULAR HEMOGLOBIN 28.6 pg (28.0-32.0); MEAN CORPUSCULAR VOLUME 86.4 fL (81.0-99.0); MEAN PLATELET VOLUME 8.8 fl (7.4-10.4); NEUTROPHILS % 64.1 % (40.0-76.0); PLATELET 208 x1000/uL (130-400); RED BLOOD CELL COUNT 4.76 mill/uL (4.2-5.4); RED CELL DISTRIBUTION WIDTH 18.2 % (11.6-14.6)
[2022-10-15 08:00] VITALS: BP 112/58
[2022-10-15] MEDS ORDERED: NALOXONE HCL 0.4MG/ML VIAL IV PRN (08:00)
[2022-10-15] MEDS: DULOXETINE HCL 30MG DR CAPSULE PO SCH ×2 (08:38→17:00)
[2022-10-15] MEDS: GUAIFENESIN 600MG ER TABLET PO SCH ×2 (08:39→20:28)
[2022-10-15] MEDS: PREDNISONE 20MG TABLET PO SCH (08:39)
[2022-10-15] MEDS: LOSARTAN POTASSIUM 50 MG TABLET PO SCH (08:39)
[2022-10-15] MEDS: FUROSEMIDE 40MG TABLET PO SCH (08:39)
[2022-10-15] MEDS: ZIPRASIDONE HCL 20MG CAPSULE PO SCH ×2 (08:39→17:00)
[2022-10-15] MEDS: BACLOFEN 10MG TABLET PO SCH ×3 (08:40→17:34)
[2022-10-15] MEDS: ENOXAPARIN 40MG/0.4ML SYR SUBCUT SCH (08:41)
[2022-10-15] MEDS: NICOTINE 14MG PATCH TD SCH (08:41)
[2022-10-15] MEDS: LORATADINE 10MG TABLET PO SCH (08:42)
[2022-10-15] MEDS: LIDOCAINE 5% PATCH TOP SCH (08:42)
[2022-10-15 12:00] VITALS: BP 110/60
[2022-10-15] MEDS: HYDROCODONE/ACETAMINOPHEN 5/325MG TABLET PO PRN ×2 (13:18→20:30)
[2022-10-15 16:00] VITALS: BP 149/56
[2022-10-15 20:00] VITALS: BP 111/48
[2022-10-15] MEDS: FAMOTIDINE 20MG TABLET PO SCH (20:28)
[2022-10-15] MEDS: TRAZODONE HCL 50MG TABLET PO SCH (20:28)
[2022-10-15] MEDS: PRAZOSIN HCL 1MG CAPSULE PO SCH (21:00)
[2022-10-16] MEDS: GABAPENTIN 300MG CAPSULE PO SCH ×3 (05:46→21:26)
[2022-10-16] MEDS: LOSARTAN POTASSIUM 50 MG TABLET PO SCH (10:06)
[2022-10-16] MEDS: DULOXETINE HCL 30MG DR CAPSULE PO SCH ×2 (10:06→17:00)
[2022-10-16] MEDS: ZIPRASIDONE HCL 20MG CAPSULE PO SCH ×2 (10:07→17:00)
[2022-10-16] MEDS: GUAIFENESIN 600MG ER TABLET PO SCH ×2 (10:07→21:26)
[2022-10-16] MEDS: FUROSEMIDE 40MG TABLET PO SCH (10:07)
[2022-10-16] MEDS: LORATADINE 10MG TABLET PO SCH (10:07)
[2022-10-16] MEDS: PREDNISONE 10MG TABLET PO SCH (10:08)
[2022-10-16] MEDS: LIDOCAINE 5% PATCH TOP SCH (10:09)
[2022-10-16] MEDS: ENOXAPARIN 40MG/0.4ML SYR SUBCUT SCH (10:11)
[2022-10-16] MEDS: NICOTINE 14MG PATCH TD SCH (10:23)
[2022-10-16] MEDS: BACLOFEN 10MG TABLET PO SCH ×3 (10:23→18:10)
[2022-10-16] MEDS: HYDROCODONE/ACETAMINOPHEN 5/325MG TABLET PO PRN ×2 (10:31→15:43)
[2022-10-16 20:00] VITALS: BP 117/57
[2022-10-16] MEDS: FAMOTIDINE 20MG TABLET PO SCH (21:23)
[2022-10-16] MEDS: PRAZOSIN HCL 1MG CAPSULE PO SCH (21:26)
[2022-10-16] MEDS: TRAZODONE HCL 50MG TABLET PO SCH (21:27)
[2022-10-17] VITALS: BP 123/53
[2022-10-17 04:00] VITALS: BP 135/57
[2022-10-17] MEDS: GABAPENTIN 300MG CAPSULE PO SCH ×2 (06:06→16:23)
[2022-10-17] MEDS: HYDROCODONE/ACETAMINOPHEN 5/325MG TABLET PO PRN (06:10)
[2022-10-17 08:00] VITALS: BP 103/42
[2022-10-17] MEDS: ENOXAPARIN 40MG/0.4ML SYR SUBCUT SCH (09:00)
[2022-10-17] MEDS: LORATADINE 10MG TABLET PO SCH (09:59)
[2022-10-17] MEDS: GUAIFENESIN 600MG ER TABLET PO SCH (09:59)
[2022-10-17] MEDS: DULOXETINE HCL 30MG DR CAPSULE PO SCH ×2 (09:59→16:27)
[2022-10-17] MEDS: BACLOFEN 10MG TABLET PO SCH ×3 (09:59→17:00)
[2022-10-17] MEDS: LIDOCAINE 5% PATCH TOP SCH (10:00)
[2022-10-17] MEDS: ZIPRASIDONE HCL 20MG CAPSULE PO SCH ×2 (10:00→16:27)
[2022-10-17] MEDS: FUROSEMIDE 40MG TABLET PO SCH (10:00)
[2022-10-17] MEDS: PREDNISONE 10MG TABLET PO SCH (10:00)
[2022-10-17] MEDS: LOSARTAN POTASSIUM 50 MG TABLET PO SCH (10:00)
[2022-10-17] MEDS: NICOTINE 14MG PATCH TD SCH (10:01)
[2022-10-17 17:04] VITALS: BP 113/63
== END 2022-10-17 17:33 | disposition home or self-care (01) | DRG 720 ==
LOC: ER 19:18 → MICUSO 23:02 → EDBEDREQ 23:23 → EDBEDREQTM 23:23 → 5EST 09-22 21:03 → 3WST 09-28 16:44 → 5WST 10-01 09:00 → 6WST 10-13 16:18 → 6EST 10-15 15:50
PROVIDERS: ADMIT Internal Medicine; ATTEND Internal Medicine
PROC: 5A09457 Assistance with Respiratory Ventilation, 24-96 Consecutive Hours, Continuous Positive Airway Pressure (ICD-10-PCS; principal; 2022-09-22)
PROC: 5A09357 Assistance with Respiratory Ventilation, Less than 24 Consecutive Hours, Continuous Positive Airway Pressure (ICD-10-PCS; 2022-09-24)
PROC: 5A09357 Assistance with Respiratory Ventilation, Less than 24 Consecutive Hours, Continuous Positive Airway Pressure (ICD-10-PCS; 2022-09-25)
PROC: 5A09357 Assistance with Respiratory Ventilation, Less than 24 Consecutive Hours, Continuous Positive Airway Pressure (ICD-10-PCS; 2022-09-26)
PROC: 5A09357 Assistance with Respiratory Ventilation, Less than 24 Consecutive Hours, Continuous Positive Airway Pressure (ICD-10-PCS; 2022-09-27)
DX: A41.51 Sepsis due to Escherichia coli [E. coli] (principal); J96.01 Acute respiratory failure with hypoxia; I50.43 Acute on chronic combined systolic (congestive) and diastolic (congestive) heart failure; J96.02 Acute respiratory failure with hypercapnia; E44.0 Moderate protein-calorie malnutrition; I11.0 Hypertensive heart disease with heart failure; J44.1 Chronic obstructive pulmonary disease with (acute) exacerbation; E66.2 Morbid (severe) obesity with alveolar hypoventilation; N39.0 Urinary tract infection, site not specified; E11.9 Type 2 diabetes mellitus without complications; M54.30 Sciatica, unspecified side; I25.10 Atherosclerotic heart disease of native coronary artery without angina pectoris; E78.5 Hyperlipidemia, unspecified; E55.9 Vitamin D deficiency, unspecified; G62.9 Polyneuropathy, unspecified; G89.29 Other chronic pain; G47.00 Insomnia, unspecified; R53.81 Other malaise; M47.26 Other spondylosis with radiculopathy, lumbar region; F41.9 Anxiety disorder, unspecified; F31.9 Bipolar disorder, unspecified; F43.10 Post-traumatic stress disorder, unspecified; F17.210 Nicotine dependence, cigarettes, uncomplicated; Z95.5 Presence of coronary angioplasty implant and graft; Z68.31 Body mass index [BMI] 31.0-31.9, adult; Z59.00 Homelessness unspecified; Z79.899 Other long term (current) drug therapy; Z99.81 Dependence on supplemental oxygen
CPT/HCPCS: 36415; 36600; 71045; 72148; 80048; 80053; 80061; 80305; 81003; 82306; 82375; 82550; 82553; 82607; 82746; 82805; 82962; 83036; 83540; 83550; 83735; 83880; 84100; 84439; 84443; 84484; 85025; 87077; 87186; 87426; 87804; 90686; 93005; 93970; 94640; 94660; 97110; 97116; 97162; 97166; 97530; 99285; C9803; J1650; J1940; J2930; J3420; J7512; J7626